=== PATIENT | male | born 1970 | race Caucasian/White ===

== ENCOUNTER 2016-12-01 17:10 | Emergency (ER) | payer OTHER ==
[~2016-12-01] VITALS: Ht 180.3 cm; Wt 92.4 kg
[2016-12-01] MEDS ORDERED: ONDANSETRON 4MG/2ML VIAL (J2405) IV ONE (17:45)
[2016-12-01] MEDS ORDERED: KETOROLAC 30 MG/ML VIAL (J1885) IV ONE (17:45)
[2016-12-01 18:17] LABS: BASO # 0.1 10^3/uL (0.0-0.2); BASO % 0.7 % (0.0-1.0); EOS # 0.2 10^3/uL (0.0-0.50); EOS % 2.8 % (0.0-3.0); IMMATURE GRANULOCYTE % 0.3 % (0-0); LYMPH # 2.2 10^3/uL (1.5-4.5); LYMPH % 32.6 % (24.0-44.0); MEAN CORPUSCULAR HEMOGLOBIN 29.9 pg (27.0-33.0); MEAN CORPUSCULAR HGB CONC 33.9 g/dl (32.0-36.5); MEAN CORPUSCULAR VOLUME 88.2 fl (80.0-96.0); MONO # 0.6 10^3/uL (0.0-0.8); MONO % 8.5 % (0.0-5.0); NEUTROPHILS # 3.7 10^3/uL (1.8-7.7); NEUTROPHILS % 55.1 % (36.0-66.0); PLATELET COUNT, AUTOMATED 250 10^3/uL (150-450); RED CELL DISTRIBUTION WIDTH 13.1 % (11.5-14.5); WHITE BLOOD COUNT 6.7 10^3/uL (4.0-10.0)
[2016-12-01 18:21] LABS: ADD MORPHOLOGY? NO
[2016-12-01 18:35] LABS: ALBUMIN 4.4 GM/DL (3.2-5.2); ALBUMIN/GLOBULIN RATIO 1.47 (1.00-1.93); BILIRUBIN,DIRECT 0.1 MG/DL (0.0-0.2); BILIRUBIN,TOTAL 0.4 MG/DL (0.2-1.0); CALCIUM LEVEL 9.1 MG/DL (8.5-10.1); CREATININE FOR GFR 1.82 MG/DL (0.70-1.30); GLOMERULAR FILTRATION RATE 43.1 (>60); POTASSIUM SERUM 3.7 MEQ/L (3.5-5.1); TOTAL PROTEIN 7.4 GM/DL (6.4-8.2)
--- NOTE | 2016-12-01 19:22 | REP ---
HISTORY: Left-sided pain. Possible renal calculi. PRIORS: None. The lung bases are clear. Limited evaluation of the solid intraabdominal organs and gallbladder show no gross abnormalities. Limited evaluation of the pancreas and adrenal glands show no gross abnormalities. There is no nephroureterolithiasis, hydronephrosis or hydroureter. There are no urinary bladder calcifications. There are no gross renal abnormalities. The abdominal aorta and periaortic regions appear to be within normal limits as imaged on this noncontrast enhanced exam. The bowel loops and the mesenteries are within normal limits. There is no free fluid or free air. There is no pelvic mass or adenopathy. There is no free fluid or free air. There are bilateral pelvic phleboliths and there is corpora amylacea. Bone window technique throughout the examination shows the osseous structures to be within normal limits. IMPRESSION: CT findings are within normal limits. Signed by Vini Solorio DO 12/01/2016 07:35 P
[2016-12-01] MEDS ORDERED: SIME1CAP5 PO (19:51)
[2016-12-01] MEDS ORDERED: MIRA3350 PO (19:51)
[2016-12-01 20:03] VITALS: BP 122/82
== END 2016-12-01 20:06 | disposition home or self-care (01) ==
LOC: M ED 17:10
DX: R10.12 Left upper quadrant pain (principal); R10.32 Left lower quadrant pain; R79.89 Other specified abnormal findings of blood chemistry; Z79.899 Other long term (current) drug therapy; Z88.1 Allergy status to other antibiotic agents
CPT/HCPCS: 74176; 80048; 80076; 81001; 82150; 82550; 83690; 85025; 96374; 96375; 99283; J1885; J2405

== ENCOUNTER → 2017-02-14 | Outpatient (CLI) | payer OTHER ==
[~2017-02-14] MED LIST: GASTROGRAFIN SOLUTION 30ML (Q9963) As Ordered ONE; ISOVUE-370 76% 100ML VIAL (Q9967) As Ordered ONE; MIRA3350 PO; SIME1CAP5 PO
--- NOTE | 2017-02-14 12:20 | REP ---
CT of the abdomen and pelvis without and with IV contrast: Comparison is 12/01/2016. The visualized lung hernández are unremarkable. The hepatic parenchyma, gallbladder, pancreas and spleen are normal size and unremarkable on both phases of the study. The adrenals, kidneys and aorta are unremarkable. There is no hydronephrosis. No renal calculi. There is no bowel distension or obstruction. Mesentery is unremarkable. There are occasional diverticula in the descending colon and sigmoid colon. There is no CT evidence of diverticulitis. Pelvis: The bladder is unremarkable. There is no ascites or adenopathy. The pelvic bowel loops are unremarkable. Impression: Diverticulosis without diverticulitis. Otherwise, negative CT of the abdomen and pelvis. Signed by Shlomo Almonte MD 02/14/2017 12:11 P
== END ==
LOC: M RAD 09:52
PROVIDERS: ATTEND Internal Medicine Gastroenterology
DX: R10.32 Left lower quadrant pain (principal); K57.30 Diverticulosis of large intestine without perforation or abscess without bleeding
CPT/HCPCS: 74178; Q9963; Q9967

== ENCOUNTER → 2017-03-11 | Outpatient (CLI) | payer OTHER ==
[2017-03-11 09:37] LABS: BASO % 0.8 % (0.0-1.0); EOS # 0.1 10^3/uL (0.0-0.50); EOS % 2.4 % (0.0-3.0); HEMATOCRIT 41.5 % (42.0-52.0); IMMATURE GRANULOCYTE % 0.4 % (0-0); LYMPH # 1.4 10^3/uL (1.5-4.5); LYMPH % 28.2 % (24.0-44.0); MEAN CORPUSCULAR HEMOGLOBIN 29.9 pg (27.0-33.0); MEAN CORPUSCULAR HGB CONC 33.7 g/dl (32.0-36.5); MEAN CORPUSCULAR VOLUME 88.7 fl (80.0-96.0); MONO # 0.4 10^3/uL (0.0-0.8); MONO % 8.5 % (0.0-5.0); NEUTROPHILS % 59.7 % (36.0-66.0); PLATELET COUNT, AUTOMATED 239 10^3/uL (150-450); RED BLOOD COUNT 4.68 10^6/uL (4.30-6.10); RED CELL DISTRIBUTION WIDTH 12.6 % (11.5-14.5)
[2017-03-11 10:06] LABS: ALBUMIN 4.4 GM/DL (3.2-5.2); ALBUMIN/GLOBULIN RATIO 1.83 (1.00-1.93); ALKALINE PHOSPHATASE 33 U/L (45-117); ALT/SGPT 41 U/L (12-78); ANION GAP 7 MEQ/L (8-16); AST/SGOT 37 U/L (7-37); BILIRUBIN,TOTAL 0.6 MG/DL (0.2-1.0); BLOOD UREA NITROGEN 26 MG/DL (7-18); CALCIUM LEVEL 8.9 MG/DL (8.5-10.1); CARBON DIOXIDE LEVEL 30 MEQ/L (21-32); CHLORIDE LEVEL 105 MEQ/L (98-107); GLOMERULAR FILTRATION RATE > 60.0 (>60); GLUCOSE, FASTING 46 MG/DL (70-105); IRON (FE) 115 UG/DL (65-175); PERCENT SATURATION 44.1 % (19.7-50.0); POTASSIUM SERUM 4.3 MEQ/L (3.5-5.1); SODIUM LEVEL 142 MEQ/L (136-145); TOTAL IRON BINDING CAPACITY 261 UG/DL (250-450); TOTAL PROTEIN 6.8 GM/DL (6.4-8.2)
[2017-03-11 10:12] LABS: VITAMIN B12 LEVEL 772 PG/ML
[2017-03-11 10:13] LABS: FOLATE > 24.0 NG/ML
== END ==
LOC: M LAB 09:17
DX: R10.32 Left lower quadrant pain (principal)